=== PATIENT | male | born 1955 | race Caucasian/White ===

== ENCOUNTER → 2017-03-07 | Outpatient (REF) | payer OTHER ==
[2017-03-07 14:45] LABS: PERCENT SATURATION 26.3 % (19.7-50.0)
[2017-03-08 12:04] LABS: PRETREATED FOLATE FOR RBCFOL 12.9 NG/ML
== END ==
LOC: M LAB REF 14:16
PROVIDERS: ATTEND Internal Medicine
DX: Z98.84 Bariatric surgery status (principal)

== ENCOUNTER → 2018-04-24 | Outpatient (REF) | payer OTHER ==
[2018-04-24 13:51] LABS: IRON (FE) 82 UG/DL (65-175); PERCENT SATURATION 23.5 % (19.7-50.0); TOTAL IRON BINDING CAPACITY 349 UG/DL (250-450)
[2018-04-24 13:51] LABS: URIC ACID 5.7 MG/DL (3.5-7.2)
[2018-04-24 14:03] LABS: FOLATE > 24.0 NG/ML
== END ==
LOC: M LAB REF 12:53
DX: Z98.84 Bariatric surgery status (principal); M10.9 Gout, unspecified

== ENCOUNTER → 2019-04-27 | Outpatient (REF) | payer MEDICARE, OTHER ==
[2019-04-27 13:43] LABS: IRON (FE) 127 UG/DL (65-175); PERCENT SATURATION 34.1 % (19.7-50.0); TOTAL IRON BINDING CAPACITY 372 UG/DL (250-450); URIC ACID 5.1 MG/DL (3.5-7.2)
[2019-04-27 13:52] LABS: VITAMIN B12 LEVEL 460 PG/ML
[2019-04-27 13:53] LABS: FOLATE > 24.0 NG/ML
[2019-04-28 17:15] LABS: HEMATOCRIT 46.1 % (42.0-52.0)
== END ==
LOC: M LAB REF 13:08
PROVIDERS: ATTEND Internal Medicine
DX: M10.9 Gout, unspecified (principal); Z98.84 Bariatric surgery status

== ENCOUNTER → 2019-12-14 | Outpatient (CLI) | payer MEDICARE, OTHER | LOC: M LABSMTC 13:00 | PROVIDERS: ATTEND Family Medicine | DX: Z01.818 Encounter for other preprocedural examination (principal); Z11.59 Encounter for screening for other viral diseases ==

== ENCOUNTER → 2020-05-11 | Outpatient (REF) | payer MEDICARE, OTHER ==
[2020-05-11 12:37] LABS: IRON (FE) 101 UG/DL (65-175); PERCENT SATURATION 29.7 % (19.7-50.0); TOTAL IRON BINDING CAPACITY 340 UG/DL (250-450)
[2020-05-11 12:48] LABS: FOLATE > 24.0 NG/ML; VITAMIN B12 LEVEL 798 PG/ML
[2020-05-11 12:50] LABS: HEMATOCRIT 46.5 % (42.0-52.0)
== END ==
LOC: M LAB REF 11:23
PROVIDERS: ATTEND Internal Medicine
DX: Z98.84 Bariatric surgery status (principal); D50.9 Iron deficiency anemia, unspecified

== ENCOUNTER → 2020-07-09 | Outpatient (CLI) | payer SELFPAY | LOC: M LABSMTC 08:56 | PROVIDERS: ATTEND Pediatrics | DX: Z20.828 Contact with and (suspected) exposure to other viral communicable diseases (principal) ==

== ENCOUNTER → 2020-12-07 | Outpatient (REF) | payer MEDICARE, OTHER | LOC: M LAB REF 12:17 | PROVIDERS: ATTEND Internal Medicine | DX: R39.15 Urgency of urination (principal) ==

== ENCOUNTER → 2021-05-10 | Outpatient (REF) | payer MEDICARE, OTHER ==
[2021-05-10 13:59] LABS: HEMATOCRIT 44.4 % (42.0-52.0)
[2021-05-10 14:27] LABS: URIC ACID 5.6 MG/DL (3.5-7.2)
== END ==
LOC: M LAB REF 12:11
PROVIDERS: ATTEND Internal Medicine
DX: Z98.84 Bariatric surgery status (principal); E78.00 Pure hypercholesterolemia, unspecified; Z98.890 Other specified postprocedural states

== ENCOUNTER → 2022-07-11 | Outpatient (REF) | payer MEDICARE, OTHER ==
[2022-07-11 13:30] LABS: PERCENT SATURATION 43.9 % (19.7-50.0)
[2022-07-11 18:50] LABS: HEMATOCRIT 45.2 % (42.0-52.0)
== END ==
LOC: M LAB REF 12:15
PROVIDERS: ATTEND Internal Medicine
DX: Z98.84 Bariatric surgery status (principal)

== ENCOUNTER → 2022-07-20 | Outpatient (REF) | payer MEDICARE, OTHER ==
[2022-07-20 11:20] LABS: HEMATOCRIT 45.5 % (42.0-52.0)
== END ==
LOC: M LAB REF 10:56
PROVIDERS: ATTEND Internal Medicine
DX: E53.8 Deficiency of other specified B group vitamins (principal)

== ENCOUNTER 2023-01-15 09:11 | Day surgery (SDC) | payer MEDICARE, OTHER ==
[~2023-01-15] VITALS: Ht 190.5 cm; Wt 120.8 kg
[~2023-01-15 09:11] MED LIST: ALLO100T PO; NS 1,000 ML IV ONE
[2023-01-15] MEDS ORDERED: propofoL 200 MG/20 ML VIAL As Ordered ONE ×2 (10:14→10:46)
[2023-01-15 11:41] VITALS: BP 167/89; TEMP 97.3; O2SAT 95
== END 2023-01-15 11:45 | disposition home or self-care (01) ==
LOC: M OPP 09:11
PROVIDERS: ATTEND Internal Medicine Gastroenterology
DX: Z12.11 Encounter for screening for malignant neoplasm of colon (principal); Z86.010 Personal history of colon polyps; D12.6 Benign neoplasm of colon, unspecified; K64.4 Residual hemorrhoidal skin tags; K64.8 Other hemorrhoids; K57.30 Diverticulosis of large intestine without perforation or abscess without bleeding; F17.200 Nicotine dependence, unspecified, uncomplicated; Z79.899 Other long term (current) drug therapy

== ENCOUNTER → 2023-08-23 | Outpatient (REF) | payer MEDICARE, OTHER ==
[~2023-08-23] MED LIST changes: -NS 1,000 ML IV ONE
[2023-08-23 12:13] LABS: HEMATOCRIT 45.7 % (42.0-52.0)
[2023-08-23 12:36] LABS: PERCENT SATURATION 47.9 % (19.7-50.0)
== END ==
LOC: M LAB REF 10:24
PROVIDERS: ATTEND Internal Medicine
DX: Z98.84 Bariatric surgery status (principal); D50.9 Iron deficiency anemia, unspecified